=== PATIENT | female | born 1995 | race Caucasian/White ===

== ENCOUNTER 2017-12-14 16:40 | Emergency (ER) | payer BC ==
[2017-12-14 16:49] VITALS: BP 118/81; PULSE 112; RESP 18; TEMP 99.4; O2SAT 98
--- NOTE | 2017-12-14 18:24 | ED PDOC ---
HPI: Female Pain Time Seen by Provider: 12/14/17 17:42 Chief Complaint (Nursing): Abnormal Skin Integrity Chief Complaint (Provider): Abnormal Skin Integrity History Per: Patient History/Exam Limitations: no limitations Additional Complaint(s): 22 years old female presents to the ED for wound check and evaluation of an abscess. Patient states she had incision and drainage done yesterday by her OB- CALIBRATION CHECKER, Dr. Cooley. She states she bleeds when she walks or sits on the toilet and called her doctor who advised her to visit the ER. Patient denies any bleeding or discharge her in the ED. Otherwise: (-) vomiting, (-) urinary symptoms, (-) fever, (-) chills, (-) abdominal pain, (-) other complaints. PMD: non provided Past Medical History Reviewed: Historical Data, Nursing Documentation, Vital Signs Vital Signs: Last Vital Signs Temp 99.4 F 12/14/17 16:44 Pulse 112 H 12/14/17 16:44 Resp 18 12/14/17 16:44 BP 118/81 12/14/17 16:44 Pulse Ox 98 12/14/17 16:44 - Family History Family History: States: Unknown Family Hx - Social History Current smoker - smoking cessation education provided: No Alcohol: None Drugs: Denies - Home Medications Home Medications: Ambulatory Orders Medication Instructions Recorded Acetaminophen with Codeine 1 tab PO Q6H PRN #15 tab 12/14/17 [Tylenol with Codeine No. 3 300 mg-30 mg] - Allergies Allergies/Adverse Reactions: Allergies Allergy/AdvReac Type Severity Reaction Status Date / Time No Known Allergies Allergy Verified 12/14/17 16:49 Review of Systems ROS Statement: Except As Marked, All Systems Reviewed And Found Negative Genitourinary Female: Negative for: Vaginal Discharge, Vaginal Bleeding Physical Exam - Physical Exam Comments: GENERAL APPEARANCE: Patient is awake, alert, oriented x 3, in no distress. SKIN: Warm, dry; (-) cyanosis. ABDOMEN AND GI: (-) distention. Bowel sounds active; (-) tenderness, (-) guarding, (-) rebound, (-) palpable masses, (-) CVA tenderness. GENITOURINARY: (+) Left Bartholin's gland abscess with catheter, (-) active bleeding. TELEPHONE DIAPHRAGM ASSEMBLER was present during the entire exam. EXTREMITIES: (-) deformity, (-) edema, (+) distal pulses. NEURO AND PSYCH: Mental status as above; (-) focal findings. - ECG O2 Sat by Pulse Oximetry: 98 (RA) Pulse Ox Interpretation: Normal Medical Decision Making Medical Decision Making: Time: 1744 Initial Impression: Wound check. Case d/w to Dr. Cooley, who recommends outpatient follow up. No bleeding is present on exam. Patient is giving reassurance and instructed to clean the wound and take pain medication and antibiotics. Patient states she fully agrees with and understands discharge instructions. States that she agrees with the plan and disposition. Verbalized and repeated discharge instructions and plan. I have given the patient opportunity to ask any additional questions. Scribe Attestation: Documented by Jolie Nixon, acting as a scribe for Lily Hill PA-C. Provider Scribe Attestation: All medical record entries made by the Scribe were at my direction and personally dictated by me. I have reviewed the chart and agree that the record accurately reflects my personal performance of the history, physical exam, medical decision making, and the department course for this patient. I have also personally directed, reviewed, and agree with the discharge instructions and disposition. Disposition - Clinical Impression Clinical Impression: Bartholin's gland abscess - Patient ED Disposition Is Patient to be Admitted: No Counseled Patient/Family Regarding: Diagnosis, Need For Followup - Disposition Disposition: Routine/Home Disposition Time: 18:00 Condition: STABLE Additional Instructions: Clean every day with soap and water. Continue antibiotics and take pain medications. Apply compression dressing. Follow up with your roads superintendent in 2-3 days for re-evaluation. Return to the ER at any time for any new or worsening symptoms. Prescriptions: Acetaminophen with Codeine [Tylenol with Codeine No. 3 300 mg-30 mg] 1 tab PO Q6H PRN #15 tab PRN Reason: Pain, Moderate (4-7) Instructions: Wound Care (DC), Bartholin's Gland Cyst Forms: [facility] (Fijian) - PA / PRODUCT MERCHANDISER / Resident Statement MD/DO has reviewed & agrees with the documentation as recorded.
== END 2017-12-14 18:10 | disposition home or self-care (01) ==
LOC: H.ER 16:40
DX: N75.1 Abscess of Bartholin's gland (principal)